=== PATIENT | female | born 1990 | race Caucasian/White ===

== ENCOUNTER → 2017-02-26 | Outpatient (CLI) | payer OTHER ==
[~2017-02-26] MED LIST: MOTRIN400 MG PO; PHENERGAN 25MG.25 M1 PO; RONDEC DM 120120 ML PO; TESSALON PERLE200 MG PO; ZITHROMAX TRI-500 MG PO
[2017-02-26 18:34] LABS: HEMOGLOBIN 12.8 g/dL (12.2-16.2); LYMPH % 39.7 % (10-50.0)
[2017-02-26 20:22] LABS: BUN 12 mg/dL (7-18)
[2017-02-26 22:02] LABS: GFR (ESTIMATED) 87 ML/MIN (59-)
[2017-02-28 06:37] LABS: Folate (Folic Acid) 14.3 ng/mL (>3.0); Vitamin D, 25-Hydroxy 24.5 ng/mL (30.0-100.0)
== END ==
LOC: LAB 17:55
PROVIDERS: Physician Assistant
DX: F41.9 Anxiety disorder, unspecified (principal); E66.9 Obesity, unspecified; Z68.34 Body mass index [BMI] 34.0-34.9, adult; E55.9 Vitamin D deficiency, unspecified; Z79.899 Other long term (current) drug therapy